=== PATIENT | female | born 1980 | race Caucasian/White ===

== ENCOUNTER 2025-04-12 12:33 | Emergency (ER) | payer BC ==
[2025-04-12] MEDS ORDERED: Ondansetron PF 4 MG/2 ML Vial ONE ×2 (13:07→13:11)
[2025-04-12] MEDS ORDERED: Pantoprazole 40 MG VIAL ONE (13:08)
[2025-04-12 13:21] LABS: #Basophils 0.05 10x3/uL (0.0-0.2); #Eosinophils 0.05 10x3/uL (0.0-0.5); #Monocytes 0.77 10x3/uL (0.0-1.1); #Neutrophils 4.52 10x3/uL (1.5-8.4); %Basophils 0.7 % (0.0-2.0); %Eosinophils 0.7 % (0.0-6.0); %Lymphocytes 27.0 % (18.0-47.0); %Monocytes 10.4 % (0.0-10.0); %Neutrophils 60.8 % (40.0-75.0); Hematocrit 45.4 % (34.9-44.5); Hemoglobin 15.4 g/dL (12.0-15.5); Mean Corpuscular Hemoglobin 32.2 pg (27.0-33.0); Mean Corpuscular Volume 94.8 fL (81.6-98.3); Platelet Count 351 10x3/uL (150-450); Red Blood Cell (RBC) Count 4.79 10x6/uL (3.90-5.03); White Blood Cell (WBC) Count 7.42 10x3/uL (3.5-10.5)
[2025-04-12 13:30] LABS: BHCG - Serum Negative (NEGATIVE); Pregs Control Background? CLEAR/WHITE (CLR/WHITE); Pregs Control Bar Appear? YES (CONTROL BAR)
[2025-04-12 13:37] LABS: ALT (SGPT) 34 U/L (Less than 34); AST (SGOT) 58 U/L (11-34); Albumin 3.8 g/dL (3.1-4.5); Alkaline Phosphatase 62 U/L (40-110); Anion Gap 18 mmol/L (10-20); BUN (Urea Nitrogen) 10 mg/dL (7.0-18.7); Bilirubin, Total 1.0 mg/dL (0.3-1.2); Calc. Creatinine Clearance 0 mL/min (70-130); Calcium 8.7 mg/dL (7.8-10.44); Carbon Dioxide 20 mmol/L (22-29); Chloride 101 mmol/L (98-107); Globulin 3.7 g/dL (2.4-3.5); Glucose 107 mg/dL (70-105); Lipase 12 U/L (8-78); Potassium 3.7 mmol/L (3.5-5.1); Sodium 135 mmol/L (136-145)
[2025-04-12 13:51] LABS: Glucose, Urine (Dipstick) Normal (Negative); Leukocyte Negative (Negative); Protein, Urine (Dipstick) 30 mg/dl (Neg-Trace); Specific Gravity, Urine 1.005 (1.005-1.030)
[2025-04-12 14:05] LABS: Bacteria/HPF Rare-Few HPF (None Seen); CAUTI Indications for Culture Dysuria,urgency,freq; RBC/HPF 21-50 HPF (0-3); WBC/HPF None Seen HPF (0-3)
[2025-04-12 14:06] LABS: Urine Culture Reflex No No
[2025-04-12] MEDS ORDERED: Iopamidol 300 61% 100 ML VIAL FS ONE (15:43)
== END 2025-04-12 15:08 | disposition home or self-care (01) ==
LOC: CSHERS 12:33
DX: K20.90 Esophagitis, unspecified without bleeding (principal); N93.9 Abnormal uterine and vaginal bleeding, unspecified; F17.290 Nicotine dependence, other tobacco product, uncomplicated
CPT/HCPCS: 36415; 71045; 74177; 80053; 81001; 83690; 84703; 85025; 93005; 96374; 96375; J2405; J2470; Q9967